=== PATIENT | male | born 1990 | race American Indian/Alaskan Native ===

== ENCOUNTER 2016-11-14 03:02 | Emergency (ER) | payer SELFPAY ==
[2016-11-14 03:31] VITALS: BP 126/87
[2016-11-14 04:21] LABS: Basophils % (Auto) 0.5 % (0.0-1.8); Eosinophils % (Auto) 2.2 % (0.0-4.3); Hematocrit 46.8 % (35.5-45.6); Hemoglobin 15.5 gm/dl (11.8-15.2); Mean Corpuscular HGB Conc 33 % (32-34); Mean Corpuscular Hemoglobin 30 pg (28-32); Mean Corpuscular Volume 89 fl (84-94); Platelet Count 200 K/mm3 (140-440); Red Blood Count 5.24 M/mm3 (3.65-5.03); Red Cell Distribution Width 13.6 % (13.2-15.2); White Blood Count 7.5 K/mm3 (4.5-11.0)
[2016-11-14 04:24] LABS: Anion Gap 16 mmol/L; BUN/Creatinine Ratio 11.11; Blood Urea Nitrogen 10 mg/dL (9-20); Calcium 8.9 mg/dL (8.4-10.2); Carbon Dioxide 26 mmol/L (22-30); Chloride 101.9 mmol/L (98-107); Glucose 103 mg/dL (75-100); Potassium 4.1 mmol/L (3.6-5.0); Sodium 140 mmol/L (137-145)
--- NOTE | 2016-11-15 09:45 | ED Elopement Review ---
ED Pt Elopement review - Results review Lab results: Laboratory Tests 11/14/16 11/14/16 03:41 03:41 WBC 7.5 RBC 5.24 H Hgb 15.5 H Hct 46.8 H MCV 89 MCH 30 MCHC 33 RDW 13.6 Plt Count 200 Lymph % (Auto) 27.5 [place] % (Auto) 10.1 H Eos % (Auto) 2.2 Baso % (Auto) 0.5 Lymph # 2.1 [place] # 0.8 Eos # 0.2 Baso # 0.0 Seg Neutrophils % 59.7 Seg Neutrophils # 4.5 Sodium 140 Potassium 4.1 Chloride 101.9 Carbon Dioxide 26 Anion Gap 16 BUN 10 Creatinine 0.9 Estimated GFR > 60 BUN/Creatinine Ratio 11.11 Glucose 103 H Calcium 8.9 Troponin T < 0.010 - Call Back decision Pt Call Back Decision: No action required
== END 2016-11-14 04:58 | disposition left against medical advice (07) ==
LOC: ED 03:02
DX: R07.9 Chest pain, unspecified (principal); Z53.21 Procedure and treatment not carried out due to patient leaving prior to being seen by health care provider
CPT/HCPCS: 36415; 80048; 84484; 85025; 93005; 93010